=== PATIENT | female | born 1975 | race Two or more races ===

== ENCOUNTER 2023-01-23 22:48 | Emergency (ER) | payer MEDICAID ==
[~2023-01-23] VITALS: Ht 160 cm; Wt 120.0 kg
[2023-01-23 22:54] VITALS: BP 137/70; PULSE 115; RESP 20; TEMP 99; O2SAT 95
[2023-01-23] MEDS ORDERED: KETOROLAC 30MG/ML VIAL IV STA (23:21)
[2023-01-23] MEDS ORDERED: ONDANSETRON HCL 4MG/2ML INJ IV STA (23:21)
[2023-01-23] MEDS ORDERED: SODIUM CHLORIDE 0.9% 1,000 ML IV ONE (23:30)
[2023-01-23 23:43] LABS: CHLORIDE 110 mEq/L (98-107)
[2023-01-23 23:48] LABS: HCG SCREEN NEGATIVE
[2023-01-23 23:49] LABS: ETHANOL BLOOD 240 mg/dL (-10)
[2023-01-24 00:40] LABS: BASOPHILS % 0.4 % (0.0-2.0); HEMATOCRIT. 31.8 % (36.0-48.0); HEMOGLOBIN. 10.8 g/dL (12.0-16.0); LYMPHOCYTES % 25.3 % (20.0-50.0); MEAN CORPUSCULAR HEMOGLOBIN 33.6 pg (28.0-32.0); MEAN CORPUSCULAR VOLUME 98.9 fL (81.0-99.0); MEAN PLATELET VOLUME 7.6 fl (7.4-10.4); NEUTROPHILS % 64.3 % (40.0-76.0); RED BLOOD CELL COUNT 3.21 mill/uL (4.2-5.4); RED CELL DISTRIBUTION WIDTH 16.8 % (11.6-14.6)
[2023-01-25 13:45] LABS: PLATELET 15 x1000/uL (130-400)
== END 2023-01-24 02:55 | disposition home or self-care (01) ==
LOC: ER 23:24
DX: F10.129 Alcohol abuse with intoxication, unspecified (principal); D69.6 Thrombocytopenia, unspecified; D72.819 Decreased white blood cell count, unspecified; R79.89 Other specified abnormal findings of blood chemistry; E11.9 Type 2 diabetes mellitus without complications; I10 Essential (primary) hypertension; Y90.8 Blood alcohol level of 240 mg/100 ml or more; W18.2XXA Fall in (into) shower or empty bathtub, initial encounter; Y93.89 Activity, other specified; Y92.89 Other specified places as the place of occurrence of the external cause; Y99.8 Other external cause status
CPT/HCPCS: 80053; 80320; 84703; 36415 ×2; 73060; 73080; 96361; 96374; 96375; 99285; 85025; 70450; J7030; J1885; J2405; G0480

== ENCOUNTER 2023-02-08 18:38 | Emergency (ER) | payer MEDICAID ==
[~2023-02-08] VITALS: Ht 162.6 cm; Wt 190.0 kg
[2023-02-08 18:41] VITALS: O2SAT 100
[2023-02-08] MEDS ORDERED: KETOROLAC 60MG/2ML VIAL IM ONE (20:30)
[2023-02-08] MEDS ORDERED: TRAMADOL 50MG TABLET PO ONE (20:30)
[2023-02-08 20:51] LABS: CHLORIDE 114 mEq/L (98-107); INDEX HEMOLYSI 1 (1-3); INDEX ICTERIC 2 (1-4); INDEX LIPEMIC 1 (1-3); POTASSIUM 4.1 mEq/L (3.5-5.1); SODIUM 146 mEq/L (136-145)
[2023-02-08 20:52] LABS: CALCIUM 8.3 mg/dL (8.5-10.1)
[2023-02-08 20:55] LABS: BASOPHILS % 1.6 % (0.0-2.0); HEMATOCRIT. 28.6 % (36.0-48.0); HEMOGLOBIN. 9.2 g/dL (12.0-16.0); LYMPHOCYTES % 25.3 % (20.0-50.0); MEAN CORPUSCULAR HEMOGLOBIN 31.3 pg (28.0-32.0); MEAN CORPUSCULAR HGB CONC 32.2 g/dL (31.0-37.0); MEAN CORPUSCULAR VOLUME 97.1 fL (81.0-99.0); MEAN PLATELET VOLUME 7.4 fl (7.4-10.4); MONOCYTES % 11.2 % (2.0-8.0); NEUTROPHILS % 59.9 % (40.0-76.0); RED BLOOD CELL COUNT 2.94 mill/uL (4.2-5.4); RED CELL DISTRIBUTION WIDTH 17.1 % (11.6-14.6); WHITE BLOOD COUNT 2.1 x1000/uL (4.5-11.0)
[2023-02-08 21:03] LABS: CARBON DIOXIDE 29 mEq/L (21-32); CREATININE 0.5 mg/dL (0.6-1.3); ETHANOL BLOOD 357 mg/dL (-10); GLUCOSE 157 mg/dL (70-105); UREA NITROGEN BLOOD 11 mg/dL (7-21)
[2023-02-08 21:08] LABS: DIFFERENTIAL COMMENT 1
[2023-02-08 21:20] LABS: PLATELET 21 x1000/uL (130-400)
[2023-02-08 21:36] LABS: HCG SCREEN NEGATIVE
[2023-02-08 22:00] VITALS: BP 135/80; PULSE 79; RESP 15; TEMP 97.9
[2023-02-12] MEDS ORDERED: INSU100I28 SQ (23:46)
[2023-02-12] MEDS ORDERED: GABA-533 PO (23:46)
== END 2023-02-09 03:55 | disposition home or self-care (01) ==
LOC: ER 18:38
DX: S70.00XA Contusion of unspecified hip, initial encounter (principal); F10.229 Alcohol dependence with intoxication, unspecified; E11.9 Type 2 diabetes mellitus without complications; I10 Essential (primary) hypertension; D61.818 Other pancytopenia; W18.39XA Other fall on same level, initial encounter; Y93.89 Activity, other specified; Y92.89 Other specified places as the place of occurrence of the external cause; Y99.8 Other external cause status; Y90.8 Blood alcohol level of 240 mg/100 ml or more
CPT/HCPCS: 80048; 80320; 84703; 85025; 36415; 72170; 96372; 99284; J1885; G0480

== ENCOUNTER 2023-03-17 15:05 | Emergency (ER) | payer MEDICAID ==
[~2023-03-17] VITALS: Ht 162.6 cm; Wt 158.8 kg
[~2023-03-17 15:05] MED LIST: FURO-151 MT; GABA-533 PO; POTA-205 MT
[2023-03-17 17:03] LABS: BG BASE EXCESS 0.9 mmol/L (-2.0-2.0); BG CARBOXYHEMOGLOBIN 0.5 % (0.5-1.5); BG DEOXYHEMOGLOBIN 6.8 % (0.0-5.0); BG FRACTION INSPIRED OXYGEN 21; BG HCO3 ACT 26.4 mmol/L (22.0-26.0); BG METHEMOGLOBIN 0.1 % (0.0-1.5); BG OXYGEN SATURATION 93.2 % (92.0-98.5); BG OXYHEMOGLOBIN 92.6 % (94.0-97.0); BG PCO2 46.8 mmHg (35.0-45.0); BG PO2 75.2 mmHg (75.0-100.0); BG SAMPLE SITE RIGHT RADIAL; BG TOTAL HEMOGLOBIN 9.2 g/dL (12.0-18.0); BG VENT MODE ROOM AIR
[2023-03-17 18:52] LABS: BASOPHILS % 0.5 % (0.0-2.0); DIFFERENTIAL COMMENT 0; EOSINOPHILS % 6.6 % (0.0-5.0); HEMATOCRIT. 25.3 % (36.0-48.0); HEMOGLOBIN. 7.9 g/dL (12.0-16.0); LYMPHOCYTES % 20.3 % (20.0-50.0); MEAN CORPUSCULAR HEMOGLOBIN 31.2 pg (28.0-32.0); MEAN CORPUSCULAR HGB CONC 31.2 g/dL (31.0-37.0); MEAN CORPUSCULAR VOLUME 100.1 fL (81.0-99.0); MEAN PLATELET VOLUME 8.5 fl (7.4-10.4); MONOCYTES % 9.1 % (2.0-8.0); NEUTROPHILS % 63.5 % (40.0-76.0); PLATELET 86 x1000/uL (130-400); RED BLOOD CELL COUNT 2.52 mill/uL (4.2-5.4); RED CELL DISTRIBUTION WIDTH 20.6 % (11.6-14.6)
[2023-03-17 19:02] LABS: CHLORIDE 115 mEq/L (98-107); INDEX HEMOLYSI 1 (1-3); INDEX ICTERIC 2 (1-4); INDEX LIPEMIC 1 (1-3); INR 1.3; PROTHROMBIN TIME 13.9 sec (9.6-11.0); SODIUM 143 mEq/L (136-145)
[2023-03-17 19:03] LABS: HCG SCREEN NEGATIVE
[2023-03-17 19:10] LABS: ALANINE AMINOTRANSFERASE 37 IU/L (13-61); ALBUMIN 2.1 g/dL (3.4-5.0); ASPARTATE AMINOTRANSFERASE 86 IU/L (15-37); BILIRUBIN TOTAL 1.9 mg/dL (0.1-1.0); CALCIUM 7.8 mg/dL (8.5-10.1); CARBON DIOXIDE 27 mEq/L (21-32); CREATINE KINASE 141 IU/L (26-192); CREATININE 0.7 mg/dL (0.6-1.3); ETHANOL BLOOD 294 mg/dL (-10); GLUCOSE 142 mg/dL (70-105); PROTEIN TOTAL 7.2 g/dL (6.0-8.3); UREA NITROGEN BLOOD 8 mg/dL (7-21)
[2023-03-17 19:13] LABS: TROPONIN I HIGH SENSITIVITY 4 ng/L (<54)
[2023-03-17] MEDS ORDERED: CEFTRIAXONE 1GM PREMIX 50 ML IV NR (22:30)
[2023-03-17] MEDS ORDERED: VANCOMYCIN 1.25GM PMX (XELLIA) 250 ML IV SCH (23:00)
[2023-03-17 23:29] LABS: INDEX HEMOLYSI 1 (1-3)
[2023-03-17 23:33] LABS: AMMONIA 74 uMol/L (<32)
[2023-03-17 23:44] LABS: CLARITY URINE CLOUDY (CLEAR); COLOR URINE DARK YELLOW (YELLOW); GLUCOSE URINE NEGATIVE (NEGATIVE); KETONES URINE NEGATIVE (NEGATIVE); LEUKOCYTE ESTERASE URINE NEGATIVE (NEGATIVE); NITRITE URINE POSITIVE (NEGATIVE); OCCULT BLOOD URINE NEGATIVE (NEGATIVE); PH URINE 5.5 (4.5-8.0); PROTEIN URINE NEGATIVE (NEGATIVE); SPECIFIC GRAVITY URINE 1.013 (1.005-1.030); UROBILINOGEN URINE 0.2 E.U./dL (0.2-1.0)
[2023-03-18] MEDS ORDERED: ONDANSETRON HCL 4MG/2ML INJ IV ONE
[2023-03-18] MEDS ORDERED: MORPHINE SULFATE 4 MG/ML CPJ (NOT FOR IM USE) IV ONE
[2023-03-18 00:07] LABS: *AMPHETAMINES SCREEN URINE NEGATIVE (NEGATIVE); *BARBITURATES SCREEN URINE NEGATIVE (NEGATIVE); *COCAINE SCREEN URINE NEGATIVE (NEGATIVE); CANNABINOID URINE SCREEN NEGATIVE (NEGATIVE); ECSTASY MDMA SCREEN URINE NEGATIVE (NEGATIVE); METHADONE URINE SCREEN NEGATIVE (NEGATIVE); OPIATES URINE SCREEN NEGATIVE (NEGATIVE); PHENCYCLIDINE URINE SCREEN NEGATIVE (NEGATIVE)
[2023-03-18 00:09] LABS: *BENZODIAZEPINES SCREEN URINE PRESUMTIVE POSITIVE (NEGATIVE)
[2023-03-18 00:13] LABS: BACTERIA URINE 2+; RBC URINE NONE SEEN /hpf (0-2); SQUAMOUS EPITHELIAL CELL URINE FEW /lpf (RARE/1+); WBC URINE NONE SEEN /hpf (0-2)
[2023-03-18 02:43] VITALS: BP 123/70; PULSE 79; RESP 15; TEMP 97.9
== END 2023-03-18 04:20 | disposition short-term general hospital (02) ==
LOC: ER 15:05
DX: R53.1 Weakness (principal); E11.9 Type 2 diabetes mellitus without complications; I10 Essential (primary) hypertension; F10.20 Alcohol dependence, uncomplicated; Y90.8 Blood alcohol level of 240 mg/100 ml or more
CPT/HCPCS: 80053; 80305; 81003; 80320; 82140; 82550; 84703; 83605; 83690; 84443; 85025; 85610; 86850; 86900; 86901; 87040; 87086; 84484; 87804 ×2; 36415; 84145; 71045; 70450; 71250; 74176; 82805; 82375; 93005; 96365; 99291; 84436; 36600; 96367; 96375; J3370; J0696; Z7610 ×2; J2405; J2270; G0480

== ENCOUNTER 2023-03-27 22:10 | Emergency (ER) | payer MEDICAID ==
[~2023-03-27] VITALS: Ht 170.2 cm; Wt 163.0 kg
[~2023-03-27 22:10] MED LIST changes: -GABA-533 PO; +GABA-534 PO
[2023-03-27 22:13] VITALS: O2SAT 100
[2023-03-27] MEDS ORDERED: IBUPROFEN 400MG TABLET PO ONE (22:15)
[2023-03-27 23:00] LABS: BASOPHILS % 0.9 % (0.0-2.0); EOSINOPHILS % 5.9 % (0.0-5.0); HEMATOCRIT. 23.4 % (36.0-48.0); HEMOGLOBIN. 7.6 g/dL (12.0-16.0); LYMPHOCYTES % 25.8 % (20.0-50.0); MEAN CORPUSCULAR HEMOGLOBIN 31.6 pg (28.0-32.0); MEAN CORPUSCULAR HGB CONC 32.7 g/dL (31.0-37.0); MEAN CORPUSCULAR VOLUME 96.5 fL (81.0-99.0); MEAN PLATELET VOLUME 8.8 fl (7.4-10.4); MONOCYTES % 10.7 % (2.0-8.0); NEUTROPHILS % 56.7 % (40.0-76.0); PLATELET 58 x1000/uL (130-400); RED BLOOD CELL COUNT 2.42 mill/uL (4.2-5.4); RED CELL DISTRIBUTION WIDTH 19.7 % (11.6-14.6); WHITE BLOOD COUNT 4.8 x1000/uL (4.5-11.0)
[2023-03-27 23:07] LABS: CHLORIDE 112 mEq/L (98-107); INDEX HEMOLYSI 1 (1-3); INDEX ICTERIC 2 (1-4); INDEX LIPEMIC 1 (1-3); POTASSIUM 3.2 mEq/L (3.5-5.1); SODIUM 141 mEq/L (136-145)
[2023-03-27 23:14] LABS: ALANINE AMINOTRANSFERASE 18 IU/L (13-61); ALBUMIN 1.9 g/dL (3.4-5.0); ASPARTATE AMINOTRANSFERASE 37 IU/L (15-37); BILIRUBIN TOTAL 2.1 mg/dL (0.1-1.0); CALCIUM 7.3 mg/dL (8.5-10.1); CARBON DIOXIDE 23 mEq/L (21-32); CREATININE 0.5 mg/dL (0.6-1.3); ETHANOL BLOOD 203 mg/dL (<10); GLUCOSE 175 mg/dL (70-105); PROTEIN TOTAL 6.5 g/dL (6.0-8.3); UREA NITROGEN BLOOD 6 mg/dL (7-21)
[2023-03-27] MEDS ORDERED: ACETAMINOPHEN 325MG TABLET PO ONE (23:15)
[2023-03-27 23:27] LABS: HCG SCREEN NEGATIVE
[2023-03-27] MEDS ORDERED: POTASSIUM CHLORIDE 20MEQ TABLET SR PO ONE (23:30)
[2023-03-28 00:50] VITALS: BP 109/59; PULSE 114; RESP 18; TEMP 98.8
== END 2023-03-28 00:50 | disposition home or self-care (01) ==
LOC: ER 22:10
DX: F10.229 Alcohol dependence with intoxication, unspecified (principal); D64.9 Anemia, unspecified; E11.9 Type 2 diabetes mellitus without complications; I10 Essential (primary) hypertension; Y90.7 Blood alcohol level of 200-239 mg/100 ml
CPT/HCPCS: 80053; 80320; 84703; 85025; 36415; 99283; Z7610 ×2; G0480

== ENCOUNTER 2023-04-02 00:53 | Emergency (ER) | payer MEDICAID ==
[~2023-04-02] VITALS: Ht 165.1 cm; Wt 150.0 kg
[2023-04-02 00:54] VITALS: O2SAT 97
[2023-04-02 01:28] LABS: BASOPHILS % 0.5 % (0.0-2.0); EOSINOPHILS % 4.5 % (0.0-5.0); HEMATOCRIT. 21.6 % (36.0-48.0); LYMPHOCYTES % 20.3 % (20.0-50.0); MEAN CORPUSCULAR HEMOGLOBIN 31.3 pg (28.0-32.0); MEAN CORPUSCULAR HGB CONC 32.4 g/dL (31.0-37.0); MEAN CORPUSCULAR VOLUME 96.6 fL (81.0-99.0); MEAN PLATELET VOLUME 8.2 fl (7.4-10.4); MONOCYTES % 9.2 % (2.0-8.0); NEUTROPHILS % 65.5 % (40.0-76.0); PLATELET 65 x1000/uL (130-400); RED BLOOD CELL COUNT 2.23 mill/uL (4.2-5.4); RED CELL DISTRIBUTION WIDTH 19.6 % (11.6-14.6)
[2023-04-02 01:35] LABS: CHLORIDE 109 mEq/L (98-107); INDEX HEMOLYSI 1 (1-3); INDEX ICTERIC 2 (1-4); INDEX LIPEMIC 1 (1-3); POTASSIUM 3.8 mEq/L (3.5-5.1); SODIUM 136 mEq/L (136-145)
[2023-04-02 01:42] LABS: HCG SCREEN NEGATIVE
[2023-04-02 01:45] LABS: ACETAMINOPHEN < 2 ug/mL (10-30); ALANINE AMINOTRANSFERASE 20 IU/L (13-61); ALBUMIN 1.9 g/dL (3.4-5.0); ASPARTATE AMINOTRANSFERASE 42 IU/L (15-37); CALCIUM 7.6 mg/dL (8.5-10.1); CARBON DIOXIDE 24 mEq/L (21-32); CREATININE 0.6 mg/dL (0.6-1.3); ETHANOL BLOOD 176 mg/dL (<10); GLUCOSE 149 mg/dL (70-105); PROTEIN TOTAL 6.4 g/dL (6.0-8.3); UREA NITROGEN BLOOD 9 mg/dL (7-21)
[2023-04-02] MEDS ORDERED: FOLIC ACID 1 MG, THIAMINE HCL 100 MG, MVI, ADULT NO.1 10 ML in DEXTROSE 5% WATER 1,000 ML IV NR ×4 (05:15)
[2023-04-02] MEDS ORDERED: SODIUM CHLORIDE 0.9% 1,000 ML IV ONE ×2 (05:30→07:45)
[2023-04-02 08:37] LABS: HEMATOCRIT 21.9 % (36.0-48.0); HEMOGLOBIN 7.3 g/dL (12.0-16.0)
[2023-04-02 12:00] VITALS: BP 134/86; PULSE 88; RESP 16; TEMP 97.6
== END 2023-04-02 12:02 | disposition left against medical advice (07) ==
LOC: ER 00:53 → EDBEDREQ 09:34 → CANBEDREQ 11:47 → ER 12:02
DX: F41.0 Panic disorder [episodic paroxysmal anxiety] (principal); F10.21 Alcohol dependence, in remission; D64.9 Anemia, unspecified; E11.9 Type 2 diabetes mellitus without complications; I10 Essential (primary) hypertension; Z91.041 Radiographic dye allergy status
CPT/HCPCS: 80053; 80307; 80329; 80320; 82962; 84703; 85014; 85018; 85025; 86850; 86900; 86901; 36415; 96365; 96366; 99284; J3490 ×2; J3411; J7070; J7030; Z7610; G0480

== ENCOUNTER 2024-06-21 05:02 | Emergency (ER) | payer MEDICAID, OTHER ==
[~2024-06-21] VITALS: Ht 165.1 cm; Wt 145.0 kg
[~2024-06-21 05:02] MED LIST changes: +carvedilol; +xifaxan
[2024-06-21 05:03] VITALS: O2SAT 97
[2024-06-21 07:30] LABS: CHLORIDE 107 mEq/L (98-107); POTASSIUM 3.8 mEq/L (3.5-5.1); SODIUM 144 mEq/L (136-145)
[2024-06-21 07:32] LABS: CALCIUM 8.2 mg/dL (8.7-10.4); CARBON DIOXIDE 27 mEq/L (21-32)
[2024-06-21 07:33] LABS: BASOPHILS % 0.2 % (0.0-2.0); EOSINOPHILS % 0.8 % (0.0-5.0); HEMATOCRIT. 35.8 % (36.0-48.0); HEMOGLOBIN. 11.8 g/dL (12.0-16.0); LYMPHOCYTES % 14.2 % (20.0-50.0); MEAN CORPUSCULAR HEMOGLOBIN 31.2 pg (28.0-32.0); MEAN CORPUSCULAR HGB CONC 32.9 g/dL (31.0-37.0); MEAN PLATELET VOLUME 8.5 fl (7.4-10.4); MONOCYTES % 4.8 % (2.0-8.0); RED BLOOD CELL COUNT 3.77 mill/uL (4.2-5.4); RED CELL DISTRIBUTION WIDTH 15.6 % (11.6-14.6); WHITE BLOOD COUNT 5.2 x1000/uL (4.5-11.0)
[2024-06-21 07:37] LABS: CREATININE 0.5 mg/dL (0.6-1.0); GLUCOSE 147 mg/dL (70-105)
[2024-06-21 07:38] LABS: DIFFERENTIAL COMMENT 1; UREA NITROGEN BLOOD 9 mg/dL (9-23)
[2024-06-21 07:39] LABS: ALANINE AMINOTRANSFERASE 39 IU/L (10-49); ALBUMIN 3.4 g/dL (3.2-4.8); AMMONIA 44 uMol/L (<32); ASPARTATE AMINOTRANSFERASE 146 IU/L (<34)
[2024-06-21 07:40] LABS: BILIRUBIN DIRECT 1.1 mg/dL (<=3.0); BILIRUBIN TOTAL 2.4 mg/dL (0.1-1.0); INR 1.2; PROTEIN TOTAL 7.5 g/dL (6.0-8.3); PROTHROMBIN TIME 13.1 sec (9.6-11.0)
[2024-06-21] MEDS: SODIUM CHLORIDE 0.9% 1,000 ML IV ONE (10:11)
[2024-06-21] MEDS: ONDANSETRON HCL 4MG/2ML INJ IV STA (10:33)
[2024-06-21] MEDS: LACTULOSE 20G/30ML UDC PO ONE (10:34)
[2024-06-21] MEDS ORDERED: CHLORDIAZEPOXIDE 25MG CAPSULE PO ONE (10:45)
[2024-06-21] MEDS: CHLORDIAZEPOXIDE 25MG CAPSULE PO NR (12:32)
[2024-06-21] MEDS: KETOROLAC 30MG/ML VIAL IV STA (12:32)
[2024-06-21 12:51] VITALS: BP 157/86; PULSE 98; RESP 16; TEMP 36.83628; O2SAT 100
[2024-06-22 17:20] LABS: PLATELET 22 x1000/uL (130-400)
== END 2024-06-21 12:52 | disposition short-term general hospital (02) ==
LOC: ER 05:15 → CANBEDREQ 09:53 → ER 12:52
DX: F10.939 Alcohol use, unspecified with withdrawal, unspecified (principal); E11.9 Type 2 diabetes mellitus without complications; Z20.822 Contact with and (suspected) exposure to COVID-19; Z79.899 Other long term (current) drug therapy; Z88.8 Allergy status to other drugs, medicaments and biological substances; Y90.9 Presence of alcohol in blood, level not specified
CPT/HCPCS: 80076; 80048; 82140; 83690; 85025; 85610; 86850; 86900; 86901; 87804 ×2; 36415; 71045; 93005; 96361; 96374; 99285; 87426; J1885; J2405; J7030; Z7610 ×4